=== PATIENT | female | born 1950 | race Two or more races ===

== ENCOUNTER 2023-02-11 16:48 | Emergency (ER) | payer MEDICARE ==
[~2023-02-11] VITALS: Ht 167.6 cm; Wt 100.0 kg
[2023-02-11 17:46] VITALS: BP 142/61
== END 2023-02-11 18:56 | disposition left against medical advice (07) ==
LOC: ER 16:48
DX: L08.9 Local infection of the skin and subcutaneous tissue, unspecified (principal); F41.9 Anxiety disorder, unspecified; F32.9 Major depressive disorder, single episode, unspecified; E11.9 Type 2 diabetes mellitus without complications; I10 Essential (primary) hypertension; Z88.2 Allergy status to sulfonamides; Z91.018 Allergy to other foods; Z98.890 Other specified postprocedural states